=== PATIENT | female | born 1940 | race Caucasian/White ===

== ENCOUNTER → 2017-10-03 | Outpatient (CLI) | payer OTHER | END | disposition home or self-care (01) | LOC: KCIC MAMMO 10:34 | DX: Z12.31 Encounter for screening mammogram for malignant neoplasm of breast (principal); I12.9 Hypertensive chronic kidney disease with stage 1 through stage 4 chronic kidney disease, or unspecified chronic kidney disease; E11.22 Type 2 diabetes mellitus with diabetic chronic kidney disease; N18.9 Chronic kidney disease, unspecified | CPT/HCPCS: 77067 ==

== ENCOUNTER 2017-11-08 13:49 | Emergency (ER) | payer OTHER ==
[2017-11-08] MEDS: PANTOPRAZOLE IV PUSH 40 MG VIAL. IVP (14:15)
[2017-11-08] MEDS: ONDANSETRON PF 4 MG/2 ML VIAL. IV (14:15)
[2017-11-08] MEDS: IV NORMAL SALINE 1000ML BAG 1,000 ML IV (14:15)
[2017-11-08 14:31] LABS: ADD MAN DIFF? NO
[2017-11-08 14:36] LABS: BASO # 0.1 x10^3/uL (0.0-0.2); BASO % 1 % (0-3); EOS # 0.2 x10^3/uL (0.0-0.7); EOS % 3 % (0-3); HEMATOCRIT 24.2 % (36.0-47.0); HEMOGLOBIN 8.6 g/dL (12.0-15.5); LYMPH # 1.1 x10^3/uL (1.0-4.8); LYMPH % 17 % (24-48); MEAN CORPUSCULAR HEMOGLOBIN 31 pg (25-35); MEAN CORPUSCULAR HGB CONC 36 g/dL (31-37); MEAN CORPUSCULAR VOLUME 88 fL (79-100); MONO # 0.6 x10^3/uL (0.0-1.1); MONO % 9 % (0-9); NEUT # 4.6 x10^3uL (1.8-7.7); NEUT % 70 % (31-73); PLATELET COUNT 175 x10^3/uL (140-400); RED BLOOD COUNT 2.75 x10^6/uL (3.50-5.40); WHITE BLOOD COUNT 6.6 x10^3/uL (4.0-11.0)
[2017-11-08 14:41] LABS: FECAL OB PT POSITIVE (NEG); NEG OBC FOB NEG; POS OBC FOB POS
[2017-11-08 14:52] LABS: ANION GAP 9 (6-14); BLOOD UREA NITROGEN 19 mg/dL (7-20); BUN/CREATININE RATIO 14 (6-20); CALCIUM 8.4 mg/dL (8.5-10.1); CARBON DIOXIDE 24 mmol/L (21-32); CHLORIDE 99 mmol/L (98-107); CREATININE 1.4 mg/dL (0.6-1.0); GFR 36.3; GLUCOSE 140 mg/dL (70-99); POTASSIUM 4.1 mmol/L (3.5-5.1); SODIUM 132 mmol/L (136-145)
[2017-11-08 14:58] LABS: ALBUMIN 3.2 g/dL (3.4-5.0); ALBUMIN/GLOBULIN RATIO 1.1 (1.0-1.7); ALK PHOS 52 U/L (46-116); ALT (SGPT) 10 U/L (14-59); AST (SGOT) 20 U/L (15-37); LIPASE 57 U/L (73-393); TOTAL BILIRUBIN 0.4 mg/dL (0.2-1.0); TOTAL PROTEIN 6.2 g/dL (6.4-8.2)
== END 2017-11-08 16:15 | disposition home or self-care (01) ==
LOC: ER 16:15
DX: K62.5 Hemorrhage of anus and rectum (principal); E11.9 Type 2 diabetes mellitus without complications; I10 Essential (primary) hypertension; Z88.8 Allergy status to other drugs, medicaments and biological substances; Z79.4 Long term (current) use of insulin; Z90.49 Acquired absence of other specified parts of digestive tract
CPT/HCPCS: 36415; 80053; 82274; 83690; 85025; 86850; 86900; 86901; 96365; 96375; 99284; C9113; J2405; J7030

== ENCOUNTER → 2018-07-14 | Outpatient (CLI) | payer OTHER ==
[2018-03-13 15:08] VITALS: BP 135/64
[~2018-07-14] MED LIST: ASPI-482 PO; ATOR20TA58 PO; BENZ-8 PO; CHOL100013 PO; CHOL500045 PO; CYAN10005 PO; FERR325T14 PO; GABA300C18 PO; HYDR-3164 PO; HYDR12.58 PO; INSU100I17 SQ; INSU100V8 SQ; LEVO500T59 PO; LEVO750T31 PO; LOSA100T14 PO; MELO7.5O PO; OMEP20CA9 PO; OXYB5TAB7 PO
--- NOTE | 2018-07-14 13:58 | RAD ---
EXAM: Lumbar spine, 3 views. HISTORY: Pain. COMPARISON: None. FINDINGS: 3 views of the lumbar spine are obtained. There is mild lumbar levoscoliosis centered at L4. There is grade 1 anterolisthesis of L4 and L5. There is degenerative endplate remodeling with disc space narrowing predominantly at this level. There is additional endplate remodeling and anterior predominant spurring at the remainder of the visualized lower thoracic and lumbar levels. There is calcification within the disc space at T11-T12. There is facet arthropathy predominantly at L5-S1. There are multiple surgical clips within the abdomen and pelvis and there are no suspect sutures within the left upper quadrant. IMPRESSION: 1. Multilevel degenerative change, primarily at L4-L5. 2. Grade 1 anterolisthesis of L4 and L5 and mild lumbar levoscoliosis. 3. No acute osseous finding. Electronically signed by: Rosa Staton MD (07/14/2018 1:54 PM) [id number]
== END | disposition home or self-care (01) ==
LOC: RAD 13:01
PROVIDERS: ATTEND Family Medicine
DX: M47.26 Other spondylosis with radiculopathy, lumbar region (principal); M43.16 Spondylolisthesis, lumbar region; M41.86 Other forms of scoliosis, lumbar region; M12.88 Other specific arthropathies, not elsewhere classified, other specified site; M48.061 Spinal stenosis, lumbar region without neurogenic claudication; M51.84 Other intervertebral disc disorders, thoracic region
CPT/HCPCS: 72100

== ENCOUNTER → 2018-08-27 | Outpatient (CLI) | payer OTHER ==
[2018-03-13 15:08] VITALS: BP 135/64
[~2018-08-27] MED LIST changes: +OMEP20CA10 PO; -OMEP20CA9 PO
--- NOTE | 2018-08-27 13:12 | KCIC ---
EXAM: Lumbar spine MRI without contrast. HISTORY: Radiculopathy. TECHNIQUE: Multiplanar, multisequence magnetic resonance imaging of the lumbar spine was performed without contrast. COMPARISON: Radiographs dated 07/14/2018. FINDINGS: There is lumbar levoscoliosis centered at L4-L5. There is grade 1 anterolisthesis of L4 and L5, measuring 5 mm. There is kyphosis centered at T11-T12. There is degenerative endplate remodeling with disc space narrowing and osteophytosis primarily along the right aspect of L4-L5. This corresponds with the level of maximum scoliotic curvature. There is additional endplate remodeling throughout the remainder of the lumbar spine and lower thoracic spine. There is disc desiccation at multiple levels. There is no suspicious osseous lesion. There is no acute or subacute fracture. The conus terminates at L1. There is a large lobulated left renal cyst measuring at least 6.7 cm, partially excluded from the [id number]. There may be a tiny cyst or focally dilated duct within the head of the pancreas. At L1-L2, there is no stenosis. At L2-L3, there is a disc bulge and endplate remodeling. There is minimal facet arthropathy. There is minimal central canal stenosis. At L3-L4, there is a disc bulge and endplate remodeling. There is minimal facet arthropathy. There is mild left foraminal stenosis. There is slight effacement of the left lateral recess and abutment of the traversing left nerve roots. At L4-L5, there is a broad-based posterior central to right foraminal disc protrusion with 5 mm superior extrusion superimposed on a right lateral predominant disc bulge and endplate osteophytosis. There is severe facet arthropathy. There is hypertrophy of the ligamentum flavum. There is grade 1 anterolisthesis. There is moderate to severe right foraminal stenosis. There is severe central canal stenosis. At L5-S1, there is a broad-based posterior central to left foraminal disc protrusion and annular tear superimposed on a disc bulge and endplate remodeling. There is mild bilateral facet arthropathy. There is mild left foraminal stenosis. There is effacement of the left lateral recess and abutment of the traversing left nerve roots. IMPRESSION: 1. L4-L5: Broad-based posterior central to right foraminal disc protrusion with slight superior extrusion superimposed on a right lateral predominant disc bulge, endplate osteophytosis, severe facet arthropathy and hypertrophy of the ligamentum flavum. The combination of this finding and grade 1 anterolisthesis results in moderate to severe right foraminal and severe central canal stenosis at this level. 2. Multilevel degenerative change throughout the remainder of the lumbar spine, described in detail above. This results in stenosis at the aforementioned levels. 3. Lumbar scoliosis. 4. Large lobulated cyst within the left kidney measuring 6.7 cm. There may also be a tiny cyst or focally dilated duct within the head of the pancreas. Electronically signed by: Rosa Staton MD (08/27/2018 1:09 PM) [id number]
== END | disposition home or self-care (01) ==
LOC: KCIC MRI 12:00
PROVIDERS: ATTEND Family Medicine
DX: M51.16 Intervertebral disc disorders with radiculopathy, lumbar region (principal); M51.27 Other intervertebral disc displacement, lumbosacral region; M51.37 Other intervertebral disc degeneration, lumbosacral region; M48.07 Spinal stenosis, lumbosacral region
CPT/HCPCS: 72148

== ENCOUNTER → 2018-10-13 | Outpatient (CLI) | payer OTHER ==
[2018-03-13 15:08] VITALS: BP 135/64
--- NOTE | 2018-10-13 16:18 | KCIC ---
Bilateral digital screening mammograms: Reason for examination: Routine screening. Comparison is made to previous studies dated 10/03/2017 and 05/02/2016. Interpretation was made with the benefit of CAD. The skin and nipples show no abnormalities. No abnormal axillary lymph nodes are seen. The breast parenchyma shows scattered fibroglandular density. (Breast density: Category B.) There are no dominant masses, suspicious calcifications or architectural distortions. Some benign calcifications are present. Impression: No evidence of malignancy. Recommend routine screening. BI-RADS category 2: Benign "Our facility is accredited by the [employer] Mammography [employer]." This patient's information has been entered into a reminder system for the patient to be notified with the results of her examination and a target date for the next mammogram. Electronically signed by: Ivy Arnett MD (10/13/2018 4:15 PM) [id number]
== END | disposition home or self-care (01) ==
LOC: KCIC MAMMO 10:11
PROVIDERS: ATTEND Family Medicine
DX: Z12.31 Encounter for screening mammogram for malignant neoplasm of breast (principal)
CPT/HCPCS: 77067

== ENCOUNTER → 2019-12-01 | Outpatient (CLI) | payer OTHER ==
[2018-03-13 15:08] VITALS: BP 135/64
[~2019-12-01] MED LIST changes: +CYAN-25 PO; -CYAN10005 PO; -OMEP20CA10 PO; +OMEP20CA16 PO; +OXYB5TAB10 PO; -OXYB5TAB7 PO
--- NOTE | 2019-12-01 15:01 | KCIC ---
Bilateral digital screening mammograms: Reason for examination: Routine screening. Comparison is made to previous studies dated 10/13/2018 and 05/02/2016. Interpretation was made with the benefit of CAD. The skin and nipples show no abnormalities. No abnormal axillary lymph nodes are seen. The breast parenchyma shows scattered fibroglandular density. (Breast density: Category B.) There are no dominant masses, suspicious calcifications or architectural distortions. Some benign calcifications are present. Impression: No evidence of malignancy. Recommend routine screening. BI-RADS category 2: Benign "Our facility is accredited by the [employer] Mammography [employer]." This patient's information has been entered into a reminder system for the patient to be notified with the results of her examination and a target date for the next mammogram. Electronically signed by: Ivy Arnett MD (12/01/2019 2:57 PM) [id number]
== END | disposition home or self-care (01) ==
LOC: KCIC MAMMO 11:02
PROVIDERS: ATTEND Family Medicine
DX: Z12.31 Encounter for screening mammogram for malignant neoplasm of breast (principal); N64.89 Other specified disorders of breast
CPT/HCPCS: 77067

== ENCOUNTER → 2020-01-18 | Outpatient (CLI) | payer OTHER ==
[2018-03-13 15:08] VITALS: BP 135/64
--- NOTE | 2020-01-18 12:25 | KCIC ---
CERVICAL SPINE WO CONTRAST DATE: 01/18/2020 11:00 AM INDICATION: CERVICAL RADICULOPATHY. Progressing numbness in BUE, especially fingertips. TECHNIQUE: Multiplanar multisequence magnetic resonance imaging of the cervical spine was performed without administration of intravenous contrast using the standard cervical spine protocol. COMPARISON: None. FINDINGS: Image quality is degraded by motion artifact on multiple sequences. Trace anterolisthesis at C3-4 and C4-5. No acute fracture. Moderate to severe multilevel degenerative disc desiccation and disc height loss. Degenerative endplate edema at C5-6. The spinal cord is normal in signal intensity. On the limited views of the cranial cavity and brain, the cerebellum and roselia have normal morphology and signal characteristics. No Chiari malformation. No soft tissue abnormality. Normal signal voids are present in the vertebral arteries. C2-3: Disc osteophyte complex. Uncovertebral hypertrophy. No significant spinal canal stenosis or neural foraminal narrowing. C3-4: Disc osteophyte complex. Uncovertebral hypertrophy. Moderate facet arthropathy. Ligamentum flavum thickening. Moderate bilateral neural foraminal narrowing. Moderate spinal canal stenosis. C4-5: Disc osteophyte complex. Uncovertebral hypertrophy. Severe right and mild left facet arthropathy. Severe neural foraminal narrowing. Moderate spinal canal stenosis. C5-6: Disc osteophyte complex. Uncovertebral hypertrophy. Severe facet arthropathy. Ligamentum flavum thickening. Severe neural foraminal narrowing. Moderate to severe spinal canal stenosis. C6-7: Disc osteophyte complex. Uncovertebral hypertrophy. Moderate facet arthropathy. Ligamentum flavum thickening. Moderate to severe spinal canal stenosis. Moderate right and severe left neural foraminal narrowing. C7-T1: No significant spinal canal stenosis or neural foraminal narrowing. IMPRESSION: Advanced cervical spondylosis with moderate to severe spinal canal stenosis at C5-6 and C6-7. Degenerative changes otherwise detailed level by level above. Electronically signed by: Yung Hinojosa MD (01/18/2020 12:22 PM) [id number]
== END ==
LOC: KCIC MRI 10:31
PROVIDERS: ATTEND Family Medicine
DX: M47.22 Other spondylosis with radiculopathy, cervical region (principal); M48.02 Spinal stenosis, cervical region; M25.78 Osteophyte, vertebrae
CPT/HCPCS: 72141

== ENCOUNTER → 2020-12-20 | Outpatient (CLI) | payer MEDICAID, OTHER ==
[2018-03-13 15:08] VITALS: BP 135/64
--- NOTE | 2020-12-20 16:52 | KCIC ---
Bilateral digital screening mammograms with 3-D tomosynthesis: Reason for examination: Routine screening. Comparison is made to previous studies dated back to 01/28/2014. Bilateral mammograms in CC and oblique projections were obtained with 2-D imaging and 3-D tomosynthes is imaging on a Siemens Inspiration unit and reviewed on the workstation. Interpretation was made wit h the benefit of CAD. The skin and nipples show no abnormalities. No abnormal axillary lymph nodes are seen. The breast par enchyma is predominantly fatty. (Breast density: Category A.) There are no dominant masses, suspiciou s calcifications or architectural distortion. Benign calcifications are present. Impression: No evidence of malignancy. Recommend routine screening. BI-RAD Category 2: Benign. "Our facility is accredited by the [employer] Mammography Program." This patient's information has been entered into a reminder system for the patient to be notified wit h the results of her examination and a target date for the next mammogram. Electronically signed by: Ivy Arnett MD (12/20/2020 4:49 PM) [id number]
== END ==
LOC: KCIC MAMMO 13:31
PROVIDERS: ATTEND Family Medicine
DX: Z12.31 Encounter for screening mammogram for malignant neoplasm of breast (principal)
CPT/HCPCS: 77067